=== PATIENT | male | born 2005 | race Asian ===

== ENCOUNTER 2023-11-06 17:18 | Emergency (ER) | payer OTHER, SELFPAY ==
[2023-11-06 17:19] VITALS: BP 127/81; PULSE 68; RESP 18; TEMP 36.6; O2SAT 97; BMI 21.9
[2023-11-06 17:57] VITALS: BP 121/79; PULSE 71; RESP 16; TEMP 36.6; O2SAT 98
--- NOTE | 2023-11-07 22:32 | ED.VIS.LOWEX ---
HPI History of Present Illness Chief Complaint: Lower Extremity Injury Informant: patient Narrative Narrative: Pain to left knee while climbing onto a low bed. No direct injuries. This was 2 hours prior to arrival. No paresthesias. He took 1 [id number] ibuprofen prior to arrival. Prior similar symptoms: No PFSH PFSH Medical History no medical history Allergy/AdvReac Type Severity Reaction Status Date / Time No Known Allergies Allergy Verified 11/06/23 17:18 Family History no significant family his Surgical History no surgical history Social History Smoking Status: Never smoker alcohol intake: never substance use type: does not use do you feel safe at home: Yes ROS ROS ED Constitutional Constitutional ED: Denies fever(s) Cardiovascular Cardiovascular: Denies chest pain Respiratory/Chest Respiratory/Chest: Denies cough Gastrointestinal Gastrointestinal: Denies abdominal pain Musculoskeletal Musculoskeletal: Reports other Details: Left knee pain Neurologic Neurologic: Denies paresthesias or weakness EXAM Physical Exam Const Positive well nourished and well developed General Appearance ED: well developed and NAD HEENT Reports moist mucous membranes normocephalic and atraumatic Eyes EOMs intact bilaterally and conjunctivae normal General Eye ED: Yes normal appearance of both eyes Neck no lymphadenopathy and supple General: Negative for tenderness Chest Wall Chest: Negative for tenderness Resp normal respiratory effort and normal air movement Effort and Inspection: symmetric chest movement; Negative for respiratory distress Cardio regular rate, regular rhythm and no murmurs Peripheral Pulses: pulses 2+ throughout GI normal to inspection, nondistended, normoactive bowel sounds and non-tender Palpation: Negative for guarding or rebound tenderness present Back/Spine no CVA tenderness and no thoracic nor lumbar tenderness Extremity Extremity Narrative: Left lower extremity: Negative logroll knee extensor mechanism intact. Positive patellar grind. Negative varus and valgus. Negative Jan's. Soft compartments. Neuro vas intact distally. General Extremety ED: Yes tenderness; Negative for edema General Extremity: Negative for edema Neuro oriented x3 and no sensory deficits noted Sensorium / Orientation: awake and alert Skin no rashes or lesions noted and no wounds MDM MDM MDM Narrative Medical decision making narrative: Interventions / MDM: Differential diagnosis:Patellofemoral chondritis Diagnosis considered but do not suspect: No clinical fracture concerns. No clinical tendon injury. My EKG interpretation: N/A Imaging independently reviewed and interpreted by myself: N/A External documents reviewed: N/A Test considered but not ordered:N/A ED course: Exam with positive patellar grind consistent with patellofemoral syndrome chondritis. No direct injuries. offer imagings however discussed likely normal. He declined. Tae wrap provided. Discussed additional medication for which she states he will take at home. All questions were answered. Re-evaluation: stable Disposition discussed with patient/family/significant other: Patient Case discussed with consulting clinician: N/A This note was generated with [employer] dictation software. It may contain incorrect words, spelling, and punctuation that were not noted in checking the note before signing. Discharge Plan Triage Chief Complaint: Lower Extremity Injury ED Provider: Tristan Mcdonough Dx/Rx/DC Orders Clinical Impression: Patellofemoral pain syndrome of left knee, Knee pain, left Instructions: Patellofemoral Pain Syndrome Primary Care Provider: Care Physician,No Primary Activity Restrictions/Additional Instructions: Exam concerns for patellofemoral chondritis. Maintain Tae wrap for comfort. Continue Motrin up to 600 mg every 6 hours. Avoid jumping or high strenuous activities to allow to heal. Print Language: Citizen Of [place] Disposition Disposition: Home, Self Care Discharge Date/Time: 11/06/23 18:00
== END 2023-11-06 18:00 | disposition home or self-care (01) ==
LOC: ED 17:56
PROVIDERS: Emergency Provider Emergency Medicine; Visit Provider Emergency Medicine
DX: M22.2X2 Patellofemoral disorders, left knee (principal); M25.562 Pain in left knee
CPT/HCPCS: 99282

== ENCOUNTER 2024-05-12 23:26 | Emergency (ER) | payer OTHER, SELFPAY ==
[2024-05-12 23:26] VITALS: BP 133/77; PULSE 114; RESP 16; TEMP 36.6; O2SAT 97; BMI 22.8
--- NOTE | 2024-05-12 23:40 | EDS_ITS ---
HPI History of Present Illness Chief Complaint: Laceration Informant: patient Narrative Narrative: Healthy [id number] 18-year-old male states he was opening up a bottle of something for a friend, and the glass broke and somehow he came away with a laceration to his hand, unsure if it was the bottle Or the glass, etc. He states his fingertip is a little numb but he denies any loss of function to his ring finger. Denies any other injuries. Tetanus Immunization: <5 years PFSH PFSH Medical History no medical history no medical history Home Medications ?Medication ?Instructions ?Recorded ?Last Taken ?Type NK 05/12/24 Unknown History Allergy/AdvReac Type Severity Reaction Status Date / Time No Known Allergies Allergy Verified 05/12/24 23:27 Family History no significant family his Surgical History (Updated 05/12/24 @ 23:27 by Allegra Marcelo) H/O lymph node excision Social History Smoking Status: Never smoker alcohol intake: never substance use type: does not use do you feel safe at home: Yes ROS ROS ED Constitutional Constitutional ED: Denies chills or fever(s) Musculoskeletal Musculoskeletal: Reports extremity pain; Denies neck pain Integumentary Reports laceration; Denies Abrasions, rash or wounds Neurologic Neurologic: Reports paresthesias; Denies weakness EXAM Physical Exam Const Vital Signs: 05/12/24 23:26 Temperature 97.8 F Temperature Source Oral Pulse Rate 114 H Respiratory Rate 16 Blood Pressure 133/77 H Blood Pressure Mean 95 Pulse Ox 97 Positive well nourished and well developed General Appearance ED: well developed and NAD Neck full ROM and supple Back/Spine normal ROM and normal to inspection Extremity full ROM Extremity Narrative: 1.5 cm V-shaped laceration volar base of the ring finger, full-thickness clean appearing. FDP, FDS intact, full range of motion without any discomfort. Exte nsor intact. Neuro oriented x3, no focal motor deficits and no sensory deficits noted Sensorium / Orientation: alert Psych mental status grossly normal and thought process normal Skin Skin Narrative: 1.5 cm V-shaped right hand laceration see above Rashes: no rashes MDM MDM MDM Narrative Medical decision making narrative: After anesthetizing the wound, prior to repairing it was explored while ranging the patient's flexor tendons of the ring finger. I do not see any tendons exposed within the wound, just some subcutaneous tissue. Therefore I do not think he lacerated deep enough to involve tendons and wound was repaired see the procedure note. Procedures Lacerations R hand: Length: 1.5 cm Depth: Sub Q Shape: Linear (V-shaped) Prep: Sterile Conditions and Chlorhexadine Laceration repair: Irrigated, Lidocaine (plain 2%, 2cc), Local and Skin sutures Irrigated (ml): 40 Number of Sutures/[place]: 3 Suture Information: Ethilon, Simple and 4-0 Discharge Plan Triage Chief Complaint: Laceration ED Provider: Jc Neal Dx/Rx/DC Orders Clinical Impression: Laceration of hand, right Instructions: ED Laceration, Hand: All Closures Prescriptions: No Action NK Primary Care Provider: Care Physician,No Primary Referrals: [facility] [Group of Physicians] - 10-14 Days suture removal Activity Restrictions/Additional Instructions: Okay to clean with soap and water. Pat dry and place new dressing for the first couple days. If there is no drainage or signs of pain/redness/infection after 2 or 3 days and you want to leave it open that is okay. Print Language: Swedish Disposition Disposition: Home, Self Care
[2024-05-13] MEDS: Lidocaine 2% (20 ml mdv) 20 ML Vial INFILT (00:22)
== END 2024-05-13 00:27 | disposition home or self-care (01) ==
PROVIDERS: Emergency Provider Emergency Medicine; Visit Provider Emergency Medicine
DX: S61.411A Laceration without foreign body of right hand, initial encounter (principal); W25.XXXA Contact with sharp glass, initial encounter; Y93.89 Activity, other specified
CPT/HCPCS: 12001; 99283